=== PATIENT | female | born 1935 | race Caucasian/White ===

== ENCOUNTER 2023-06-11 21:17 | Inpatient (IN) | payer MEDICARE, OTHER ==
[2023-06-11 21:54] LABS: BASOPHILS ABSOLUTE AUTO 0.01 10^3/uL (0.00-0.50); BASOPHILS PERCENT AUTO 0.1 % (0-1); HEMATOCRIT 36.9 % (37.0-47.0); IMMATURE GRAN ABSOLUTE AUTO 0.02 10^3/uL (0.00-0.49); IMMATURE GRAN PERCENT AUTO 0.2 % (0.0-4.9); LYMPHOCYTES ABSOLUTE AUTO 1.62 10^3/uL (0.60-5.00); LYMPHOCYTES PERCENT AUTO 16.2 % (24-44); MEAN CORPUSCULAR HEMOGLOBIN 35.1 pg (27.0-32.0); MEAN CORPUSCULAR HGB CONC 35.2 g/dL (32.0-36.0); MEAN CORPUSCULAR VOLUME 99.7 fL (83.0-97.0); MONOCYTES ABSOLUTE AUTO 1.09 10^3/uL (0.00-1.50); MONOCYTES PERCENT AUTO 10.9 % (0-10); NEUTROPHILS ABSOLUTE AUTO 7.15 x10^3/uL (1.80-8.00); NEUTROPHILS PERCENT AUTO 71.6 % (41-71); PLATELET COUNT,PLT 254 10^3/uL (150-400)
[2023-06-11] MEDS ORDERED: Sodium Chloride 0.9% 10 ML Syringe FLUSH PRN (22:04)
[2023-06-11] MEDS ORDERED: Morphine 2 MG/ML SYRINGE IVPUSH ONE (22:04)
[2023-06-11 22:10] LABS: ALBUMIN 3.9 g/dL (3.4-5.0); BILIRUBIN TOTAL 0.7 mg/dL (0.0-1.0); CALCIUM 10.2 mg/dL (8.4-10.1); CREATININE 1.5 mg/dL (0.6-1.0); EST CRCL DRUG DOSING (CG) 24.27 mL/min; POTASSIUM,K 3.7 mEq/L (3.5-5.0); PROTEIN TOTAL,TP 8.1 g/dL (6.4-8.2)
[2023-06-11 22:14] LABS: C-REACTIVE PROTEIN 2.04 mg/dL (<=0.30)
[2023-06-11] MEDS ORDERED: Furosemide 40 MG/4 ML VIAL IVPUSH ONE (23:00)
[2023-06-11] MEDS ORDERED: Naloxone 2 MG/2 ML Syringe IVPUSH PRN (23:00)
[2023-06-11] MEDS ORDERED: Docusate Sodium 100 MG Cap PO PRN (23:00)
[2023-06-11] MEDS ORDERED: Polyethylene Glycol 3350 Powder 17 GM Packet PO PRN (23:00)
[2023-06-11] MEDS ORDERED: Acetaminophen 325 MG Tab PO PRN (23:00)
[2023-06-11] MEDS ORDERED: Ondansetron 4 MG/2 ML SDV IV PRN (23:00)
[2023-06-11] MEDS ORDERED: Ondansetron 4 MG Tab.DIS PO PRN (23:00)
[2023-06-11] MEDS: Acetaminophen/HYDROcodone 325-5 MG Tab PO PRN (23:11)
[2023-06-12] MEDS: Acetaminophen/HYDROcodone 325-5 MG Tab PO PRN ×4 (04:05→21:40)
[2023-06-12] MEDS: Morphine 2 MG/ML SYRINGE IVPUSH PRN ×4 (07:03→23:08)
[2023-06-12] MEDS: Spironolactone 25 MG Tab PO SCH ×2 (07:39→16:32)
[2023-06-12] MEDS: Doxycycline 100 MG Tab PO SCH ×2 (07:39→19:25)
[2023-06-12] MEDS: Diltiazem 120 MG Cap.CD PO SCH (07:40)
[2023-06-12] MEDS: Apixaban 5 MG Tab PO SCH ×2 (07:40→19:25)
[2023-06-12] MEDS: Metoprolol Succinate 100 MG Tab.ER PO SCH ×2 (07:41→19:26)
[2023-06-12] MEDS ORDERED: Furosemide 40 MG/4 ML VIAL IVPUSH SCH (08:00)
[2023-06-12] MEDS ORDERED: Apixaban 5 MG Tab PO SCH (08:00)
[2023-06-12 08:16] LABS: BASOPHILS ABSOLUTE AUTO 0.02 10^3/uL (0.00-0.50); BASOPHILS PERCENT AUTO 0.2 % (0-1); EOSINOPHILS ABSOLUTE AUTO 0.09 10^3/uL (0.00-1.50); HEMATOCRIT 35.7 % (37.0-47.0); HEMOGLOBIN 12.4 g/dL (12.0-16.0); IMMATURE GRAN ABSOLUTE AUTO 0.02 10^3/uL (0.00-0.49); IMMATURE GRAN PERCENT AUTO 0.2 % (0.0-4.9); LYMPHOCYTES ABSOLUTE AUTO 1.63 10^3/uL (0.60-5.00); LYMPHOCYTES PERCENT AUTO 17.6 % (24-44); MEAN CORPUSCULAR HEMOGLOBIN 34.5 pg (27.0-32.0); MEAN CORPUSCULAR HGB CONC 34.7 g/dL (32.0-36.0); MEAN CORPUSCULAR VOLUME 99.4 fL (83.0-97.0); MONOCYTES ABSOLUTE AUTO 1.15 10^3/uL (0.00-1.50); MONOCYTES PERCENT AUTO 12.4 % (0-10); NEUTROPHILS ABSOLUTE AUTO 6.33 x10^3/uL (1.80-8.00); NEUTROPHILS PERCENT AUTO 68.6 % (41-71); PLATELET COUNT,PLT 248 10^3/uL (150-400); RED BLOOD CELL COUNT 3.59 x10^6/uL (4.00-5.50); WHITE BLOOD CELL COUNT,WBC 9.2 10^3/uL (4.0-11.0)
[2023-06-12 08:28] LABS: CALCIUM 9.9 mg/dL (8.4-10.1); CREATININE 1.4 mg/dL (0.6-1.0); POTASSIUM,K 3.5 mEq/L (3.5-5.0)
[2023-06-12] MEDS: traZODone 50 MG Tab PO SCH (19:26)
[2023-06-12] MEDS: Mirtazapine 15 MG Tab PO SCH (19:26)
[2023-06-13] MEDS: Acetaminophen/HYDROcodone 325-5 MG Tab PO PRN ×2 (01:22→09:15)
[2023-06-13 07:30] LABS: BASOPHILS ABSOLUTE AUTO 0.02 10^3/uL (0.00-0.50); BASOPHILS PERCENT AUTO 0.2 % (0-1); EOSINOPHILS ABSOLUTE AUTO 0.18 10^3/uL (0.00-1.50); EOSINOPHILS PERCENT AUTO 2.1 % (0-6); HEMATOCRIT 37.7 % (37.0-47.0); HEMOGLOBIN 13.3 g/dL (12.0-16.0); IMMATURE GRAN ABSOLUTE AUTO 0.02 10^3/uL (0.00-0.49); IMMATURE GRAN PERCENT AUTO 0.2 % (0.0-4.9); LYMPHOCYTES ABSOLUTE AUTO 2.68 10^3/uL (0.60-5.00); LYMPHOCYTES PERCENT AUTO 30.7 % (24-44); MEAN CORPUSCULAR HEMOGLOBIN 35.1 pg (27.0-32.0); MEAN CORPUSCULAR HGB CONC 35.3 g/dL (32.0-36.0); MEAN CORPUSCULAR VOLUME 99.5 fL (83.0-97.0); MONOCYTES ABSOLUTE AUTO 1.13 10^3/uL (0.00-1.50); NEUTROPHILS ABSOLUTE AUTO 4.69 x10^3/uL (1.80-8.00); NEUTROPHILS PERCENT AUTO 53.8 % (41-71); PLATELET COUNT,PLT 262 10^3/uL (150-400); RED BLOOD CELL COUNT 3.79 x10^6/uL (4.00-5.50); WHITE BLOOD CELL COUNT,WBC 8.7 10^3/uL (4.0-11.0)
[2023-06-13] MEDS: Cyclobenzaprine 10 MG Tab PO SCH ×3 (07:33→20:19)
[2023-06-13] MEDS: Metoprolol Succinate 100 MG Tab.ER PO SCH ×2 (07:33→20:18)
[2023-06-13] MEDS: Doxycycline 100 MG Tab PO SCH ×2 (07:33→20:18)
[2023-06-13] MEDS: Spironolactone 25 MG Tab PO SCH ×2 (07:34→17:01)
[2023-06-13 07:43] LABS: CALCIUM 9.7 mg/dL (8.4-10.1); CREATININE 1.4 mg/dL (0.6-1.0); POTASSIUM,K 3.2 mEq/L (3.5-5.0)
[2023-06-13] MEDS: Apixaban 5 MG Tab PO SCH ×2 (07:59→20:18)
[2023-06-13] MEDS: Diltiazem 120 MG Cap.CD PO SCH (07:59)
[2023-06-13] MEDS ORDERED: Furosemide 40 MG/4 ML VIAL IVPUSH SCH (08:00)
[2023-06-13] MEDS ORDERED: Potassium Chloride 10 MEQ Tab.ER PO STA (12:05)
[2023-06-13] MEDS: Potassium Chloride 10 MEQ Tab.ER PO SCH (12:52)
[2023-06-13] MEDS: Acetaminophen/HYDROcodone 325-5 MG Tab PO SCH ×4 (13:09→20:19)
[2023-06-13] MEDS: Morphine 2 MG/ML SYRINGE IVPUSH PRN (15:06)
[2023-06-13] MEDS: Docusate Sodium 100 MG Cap PO SCH (20:18)
[2023-06-13] MEDS: Mirtazapine 15 MG Tab PO SCH (20:19)
[2023-06-13] MEDS: traZODone 50 MG Tab PO SCH (20:19)
[2023-06-14] MEDS: Acetaminophen/HYDROcodone 325-5 MG Tab PO SCH ×4 (00:13→12:24)
[2023-06-14] MEDS: Doxycycline 100 MG Tab PO SCH (07:33)
[2023-06-14] MEDS: Docusate Sodium 100 MG Cap PO SCH (07:34)
[2023-06-14] MEDS: Metoprolol Succinate 100 MG Tab.ER PO SCH (07:34)
[2023-06-14] MEDS: Cyclobenzaprine 10 MG Tab PO SCH (07:34)
[2023-06-14] MEDS: Potassium Chloride 10 MEQ Tab.ER PO SCH (07:34)
[2023-06-14 07:35] LABS: BASOPHILS ABSOLUTE AUTO 0.02 10^3/uL (0.00-0.50); BASOPHILS PERCENT AUTO 0.3 % (0-1); EOSINOPHILS ABSOLUTE AUTO 0.19 10^3/uL (0.00-1.50); EOSINOPHILS PERCENT AUTO 2.5 % (0-6); HEMATOCRIT 36.6 % (37.0-47.0); HEMOGLOBIN 12.6 g/dL (12.0-16.0); IMMATURE GRAN ABSOLUTE AUTO 0.01 10^3/uL (0.00-0.49); IMMATURE GRAN PERCENT AUTO 0.1 % (0.0-4.9); LYMPHOCYTES ABSOLUTE AUTO 1.99 10^3/uL (0.60-5.00); LYMPHOCYTES PERCENT AUTO 26.5 % (24-44); MEAN CORPUSCULAR HGB CONC 34.4 g/dL (32.0-36.0); MEAN CORPUSCULAR VOLUME 101.7 fL (83.0-97.0); MONOCYTES ABSOLUTE AUTO 0.97 10^3/uL (0.00-1.50); MONOCYTES PERCENT AUTO 12.9 % (0-10); NEUTROPHILS ABSOLUTE AUTO 4.32 x10^3/uL (1.80-8.00); NEUTROPHILS PERCENT AUTO 57.7 % (41-71); PLATELET COUNT,PLT 273 10^3/uL (150-400); WHITE BLOOD CELL COUNT,WBC 7.5 10^3/uL (4.0-11.0)
[2023-06-14] MEDS: Spironolactone 25 MG Tab PO SCH (07:35)
[2023-06-14] MEDS: Apixaban 5 MG Tab PO SCH ×2 (07:36→07:57)
[2023-06-14] MEDS: Diltiazem 120 MG Cap.CD PO SCH (07:36)
[2023-06-14 07:42] LABS: CALCIUM 9.9 mg/dL (8.4-10.1); CREATININE 1.4 mg/dL (0.6-1.0); POTASSIUM,K 4.2 mEq/L (3.5-5.0)
[2023-06-14] MEDS ORDERED: Furosemide 40 MG Tab PO SCH (08:00)
[2023-06-14 11:53] VITALS: BP 107/90; PULSE 81
== END 2023-06-14 12:28 | disposition home or self-care (01) | DRG 551 ==
LOC: CC.ED 21:17 → UNDOADMIN 22:36 → CC.MS 22:36
PROVIDERS: ADMIT Nurse Practitioner Family; ATTEND Nurse Practitioner Family
DX: S22.060A Wedge compression fracture of T7-T8 vertebra, initial encounter for closed fracture (principal); I50.33 Acute on chronic diastolic (congestive) heart failure; G89.11 Acute pain due to trauma; J18.9 Pneumonia, unspecified organism; I13.0 Hypertensive heart and chronic kidney disease with heart failure and stage 1 through stage 4 chronic kidney disease, or unspecified chronic kidney disease; R62.7 Adult failure to thrive; Z66 Do not resuscitate; R91.1 Solitary pulmonary nodule; N18.32 Chronic kidney disease, stage 3b; Z91.048 Other nonmedicinal substance allergy status; Z91.041 Radiographic dye allergy status; E78.00 Pure hypercholesterolemia, unspecified; Z79.01 Long term (current) use of anticoagulants; Z98.49 Cataract extraction status, unspecified eye; Z68.21 Body mass index [BMI] 21.0-21.9, adult; Z79.899 Other long term (current) drug therapy; X58.XXXA Exposure to other specified factors, initial encounter
CPT/HCPCS: 36415; 80048; 80053; 83880; 85025; 86140; 96374; 97116-GP; 97161-GP; 97530-GP; 99284-25; A9270-GY; J1940; J2270

== ENCOUNTER 2023-06-20 14:05 | Inpatient (IN) | payer MEDICARE, OTHER ==
[2023-06-20] MEDS ORDERED: Ondansetron 4 MG Tab.DIS PO PRN (16:31)
[2023-06-20] MEDS ORDERED: Docusate Sodium 100 MG Cap PO PRN (16:31)
[2023-06-20] MEDS ORDERED: Temazepam 15 MG Cap PO PRN (16:31)
[2023-06-20] MEDS ORDERED: Bisacodyl 5 MG Tab PO PRN (16:31)
[2023-06-20] MEDS ORDERED: Polyethylene Glycol 3350 Powder 17 GM Packet PO PRN (16:31)
[2023-06-20] MEDS ORDERED: FLU (Fluad Quad) 2023-24(65UP)/MF59C/PF 60 MCG/0.5 ML Syringe IM ONE (17:00)
[2023-06-20] MEDS: Mirtazapine 15 MG Tab PO SCH (19:20)
[2023-06-20] MEDS: Furosemide 40 MG Tab PO SCH (19:21)
[2023-06-20] MEDS: Spironolactone 25 MG Tab PO SCH (19:21)
[2023-06-20] MEDS: traZODone 50 MG Tab PO SCH (19:22)
[2023-06-20] MEDS: oxyCODONE 5 MG Tab PO PRN (20:45)
[2023-06-20] MEDS: Metoprolol Succinate 100 MG Tab.ER PO SCH (23:00)
[2023-06-21] MEDS: Spironolactone 25 MG Tab PO SCH ×2 (07:52→20:57)
[2023-06-21] MEDS: Beta-Carotene (Vitamin A) w/Vitamin C & E plus Minerals Tab PO SCH (07:52)
[2023-06-21] MEDS: Diltiazem 120 MG Cap.CD PO SCH (07:53)
[2023-06-21] MEDS: Ascorbic Acid 500 MG Tab PO SCH (07:53)
[2023-06-21] MEDS: Furosemide 40 MG Tab PO SCH ×2 (07:53→15:59)
[2023-06-21] MEDS: Metoprolol Succinate 100 MG Tab.ER PO SCH ×2 (07:53→20:58)
[2023-06-21] MEDS ORDERED: Apixaban 5 MG Tab PO SCH (08:00)
[2023-06-21] MEDS: Apixaban 5 MG Tab PO SCH ×2 (09:31→20:56)
[2023-06-21] MEDS: oxyCODONE 5 MG Tab PO PRN (10:34)
[2023-06-21] MEDS: Acetaminophen 325 MG Tab PO PRN ×2 (10:38→21:24)
[2023-06-21] MEDS: Mirtazapine 15 MG Tab PO SCH (20:57)
[2023-06-21] MEDS: traZODone 50 MG Tab PO SCH (20:57)
[2023-06-22] MEDS: Acetaminophen 325 MG Tab PO PRN ×2 (04:00→20:40)
[2023-06-22] MEDS: Apixaban 5 MG Tab PO SCH ×2 (07:37→20:39)
[2023-06-22] MEDS: Beta-Carotene (Vitamin A) w/Vitamin C & E plus Minerals Tab PO SCH (07:39)
[2023-06-22] MEDS: Ascorbic Acid 500 MG Tab PO SCH (07:39)
[2023-06-22] MEDS: Furosemide 40 MG Tab PO SCH ×2 (07:39→16:34)
[2023-06-22] MEDS: Metoprolol Succinate 100 MG Tab.ER PO SCH ×2 (07:40→20:39)
[2023-06-22] MEDS: Diltiazem 120 MG Cap.CD PO SCH (07:40)
[2023-06-22] MEDS: Spironolactone 25 MG Tab PO SCH ×2 (07:41→20:39)
[2023-06-22] MEDS: traZODone 50 MG Tab PO SCH (20:40)
[2023-06-22] MEDS: Mirtazapine 15 MG Tab PO SCH (20:40)
[2023-06-23] MEDS: Acetaminophen 325 MG Tab PO PRN (07:47)
[2023-06-23] MEDS: Metoprolol Succinate 100 MG Tab.ER PO SCH (07:49)
[2023-06-23] MEDS: Apixaban 5 MG Tab PO SCH (07:49)
[2023-06-23] MEDS: Ascorbic Acid 500 MG Tab PO SCH (07:50)
[2023-06-23] MEDS: Beta-Carotene (Vitamin A) w/Vitamin C & E plus Minerals Tab PO SCH (07:50)
[2023-06-23] MEDS: Spironolactone 25 MG Tab PO SCH (07:51)
[2023-06-23] MEDS: Furosemide 40 MG Tab PO SCH ×2 (07:51→15:37)
[2023-06-23] MEDS: Diltiazem 120 MG Cap.CD PO SCH (07:51)
[2023-06-23 07:52] VITALS: BP 112/61; PULSE 93
[2023-06-23] MEDS ORDERED: FLU (Fluad Quad) 2023-24(65UP)/MF59C/PF 60 MCG/0.5 ML Syringe IM ONE (14:30)
== END 2023-06-23 16:00 | disposition home or self-care (01) | DRG 948 ==
LOC: UNDOADMIN 14:05 → CC.MS 14:05
PROVIDERS: ADMIT Physician Assistant Medical; ATTEND Physician Assistant Medical
DX: R53.81 Other malaise (principal); I50.32 Chronic diastolic (congestive) heart failure; I48.91 Unspecified atrial fibrillation; N18.32 Chronic kidney disease, stage 3b; I11.0 Hypertensive heart disease with heart failure; E78.00 Pure hypercholesterolemia, unspecified; G89.29 Other chronic pain; M54.9 Dorsalgia, unspecified; S22.060S Wedge compression fracture of T7-T8 vertebra, sequela; Z79.899 Other long term (current) drug therapy; Z79.01 Long term (current) use of anticoagulants; Z98.890 Other specified postprocedural states; Z91.041 Radiographic dye allergy status; Z98.49 Cataract extraction status, unspecified eye
CPT/HCPCS: 82947; 90694; 97110-GP; 97161-GP; 97530-GP; A9270-GY

== ENCOUNTER 2023-06-27 15:43 | Inpatient (IN) | payer MEDICARE, OTHER ==
[2023-06-27 15:56] LABS: BASOPHILS ABSOLUTE AUTO 0.02 10^3/uL (0.00-0.50); BASOPHILS PERCENT AUTO 0.2 % (0-1); EOSINOPHILS ABSOLUTE AUTO 0.14 10^3/uL (0.00-1.50); EOSINOPHILS PERCENT AUTO 1.6 % (0-6); HEMATOCRIT 40.5 % (37.0-47.0); IMMATURE GRAN ABSOLUTE AUTO 0.03 10^3/uL (0.00-0.49); IMMATURE GRAN PERCENT AUTO 0.3 % (0.0-4.9); LYMPHOCYTES ABSOLUTE AUTO 2.08 10^3/uL (0.60-5.00); LYMPHOCYTES PERCENT AUTO 23.5 % (24-44); MEAN CORPUSCULAR HGB CONC 34.6 g/dL (32.0-36.0); MEAN CORPUSCULAR VOLUME 101.3 fL (83.0-97.0); MONOCYTES ABSOLUTE AUTO 1.15 10^3/uL (0.00-1.50); NEUTROPHILS ABSOLUTE AUTO 5.43 x10^3/uL (1.80-8.00); NEUTROPHILS PERCENT AUTO 61.4 % (41-71); PLATELET COUNT,PLT 277 10^3/uL (150-400); WHITE BLOOD CELL COUNT,WBC 8.9 10^3/uL (4.0-11.0)
[2023-06-27 16:13] LABS: APPEARANCE,URINE CLEAR (CLEAR); BILIRUBIN,URINE NEGATIVE (NEGATIVE); COLOR,URINE YELLOW (YELLOW); GLUCOSE,URINE NEGATIVE (NEGATIVE); KETONES,URINE NEGATIVE (NEGATIVE); LEUKOCYTE ESTERASE,URINE TRACE (NEGATIVE); NITRITE,URINE NEGATIVE (NEGATIVE); OCCULT BLOOD,URINE NEGATIVE (NEGATIVE); PROTEIN,URINE NEGATIVE (NEGATIVE); UROBILINOGEN,URINE 0.2 EU/dL (0.2-1.0)
[2023-06-27 16:21] LABS: BACTERIA,URINE NOT SEEN /HPF (NOT SEEN); EPITHELIAL CELLS,URINE NOT SEEN /HPF (NOT SEEN); MUCUS,URINE NOT SEEN /HPF (NOT SEEN); RBC,URINE NOT SEEN /HPF (0-5); WBC,URINE 0-5 /HPF (0-5)
[2023-06-27 16:25] LABS: ALANINE AMINOTRANSFERASE,ALT 18 U/L (12-78); ALKALINE PHOSPHATASE 127 U/L (46-116); ASPARTATE AMNIOTRANSFERASE,AST 22 U/L (15-37); BILIRUBIN TOTAL 0.8 mg/dL (0.0-1.0); BLOOD UREA NITROGEN,BUN 23 mg/dL (7-18); C-REACTIVE PROTEIN 0.97 mg/dL (<=0.30); CALCIUM 9.9 mg/dL (8.4-10.1); CARBON DIOXIDE,CO2 29 mmol/L (21-32); CHLORIDE,CL 94 mEq/L (98-106); CREATININE 1.6 mg/dL (0.6-1.0); GLUCOSE RANDOM 119 mg/dL (75-99); POTASSIUM,K 4.1 mEq/L (3.5-5.0); PROTEIN TOTAL,TP 8.2 g/dL (6.4-8.2); SODIUM,NA 133 mEq/L (136-145)
[2023-06-27 16:27] LABS: ESTIMATED GFR 31 mL/min (>=60)
[2023-06-27] MEDS ORDERED: Polyethylene Glycol 3350 Powder 17 GM Packet PO PRN (18:27)
[2023-06-27] MEDS ORDERED: Docusate Sodium 100 MG Cap PO PRN (18:27)
[2023-06-27] MEDS ORDERED: Ondansetron 4 MG Tab.DIS PO PRN (18:27)
[2023-06-27] MEDS: Furosemide 20 MG Tab PO SCH (19:37)
[2023-06-27] MEDS: Mirtazapine 15 MG Tab PO SCH (19:37)
[2023-06-27] MEDS: Spironolactone 25 MG Tab PO SCH (19:38)
[2023-06-27] MEDS: Metoprolol Succinate 100 MG Tab.ER PO SCH (19:38)
[2023-06-27] MEDS: traZODone 50 MG Tab PO SCH (19:38)
[2023-06-27] MEDS: Apixaban 5 MG Tab PO SCH (19:39)
[2023-06-27] MEDS ORDERED: DOXYCYCLINE 100 MG PO SCH (20:00)
[2023-06-28] MEDS: oxyCODONE 5 MG Tab PO PRN ×2 (02:58→08:49)
[2023-06-28] MEDS: Apixaban 5 MG Tab PO SCH ×2 (08:46→19:21)
[2023-06-28] MEDS: Beta-Carotene (Vitamin A) w/Vitamin C & E plus Minerals Tab PO SCH (08:46)
[2023-06-28] MEDS: Ascorbic Acid 500 MG Tab PO SCH (08:46)
[2023-06-28] MEDS: Furosemide 20 MG Tab PO SCH ×2 (08:46→19:21)
[2023-06-28] MEDS: Diltiazem 120 MG Cap.CD PO SCH (08:47)
[2023-06-28] MEDS: Metoprolol Succinate 100 MG Tab.ER PO SCH ×2 (08:47→19:21)
[2023-06-28] MEDS: Spironolactone 25 MG Tab PO SCH ×2 (08:48→19:19)
[2023-06-28] MEDS: traZODone 50 MG Tab PO SCH (19:20)
[2023-06-28] MEDS: Mirtazapine 15 MG Tab PO SCH (19:20)
[2023-06-28] MEDS: Acetaminophen 325 MG Tab PO PRN (21:49)
[2023-06-29] MEDS: oxyCODONE 5 MG Tab PO PRN (01:42)
[2023-06-29] MEDS: Spironolactone 25 MG Tab PO SCH ×2 (08:03→19:29)
[2023-06-29] MEDS: Diltiazem 120 MG Cap.CD PO SCH (08:04)
[2023-06-29] MEDS: Apixaban 5 MG Tab PO SCH ×2 (08:04→19:31)
[2023-06-29] MEDS: Furosemide 20 MG Tab PO SCH ×2 (08:04→19:30)
[2023-06-29] MEDS: Metoprolol Succinate 100 MG Tab.ER PO SCH ×2 (08:05→19:30)
[2023-06-29] MEDS: Beta-Carotene (Vitamin A) w/Vitamin C & E plus Minerals Tab PO SCH (08:05)
[2023-06-29] MEDS: Ascorbic Acid 500 MG Tab PO SCH (08:06)
[2023-06-29] MEDS: traZODone 50 MG Tab PO SCH (19:31)
[2023-06-29] MEDS: Mirtazapine 15 MG Tab PO SCH (19:31)
[2023-06-29] MEDS: Acetaminophen 325 MG Tab PO PRN (21:01)
[2023-06-30] MEDS: Spironolactone 25 MG Tab PO SCH ×2 (07:43→19:39)
[2023-06-30] MEDS: Ascorbic Acid 500 MG Tab PO SCH (07:43)
[2023-06-30] MEDS: Beta-Carotene (Vitamin A) w/Vitamin C & E plus Minerals Tab PO SCH (07:43)
[2023-06-30] MEDS: Furosemide 20 MG Tab PO SCH (07:44)
[2023-06-30] MEDS: Apixaban 5 MG Tab PO SCH ×2 (07:45→19:40)
[2023-06-30] MEDS: Metoprolol Succinate 100 MG Tab.ER PO SCH ×2 (07:45→19:38)
[2023-06-30] MEDS: Diltiazem 120 MG Cap.CD PO SCH (07:45)
[2023-06-30] MEDS: oxyCODONE 5 MG Tab PO PRN (11:21)
[2023-06-30] MEDS: Furosemide 40 MG Tab PO SCH (16:30)
[2023-06-30] MEDS: traZODone 50 MG Tab PO SCH (19:37)
[2023-06-30] MEDS: Mirtazapine 15 MG Tab PO SCH (19:39)
[2023-06-30] MEDS: Acetaminophen 325 MG Tab PO PRN (20:55)
[2023-07-01] MEDS: Acetaminophen 325 MG Tab PO PRN ×3 (08:38→21:26)
[2023-07-01] MEDS: Ascorbic Acid 500 MG Tab PO SCH (08:38)
[2023-07-01] MEDS: Beta-Carotene (Vitamin A) w/Vitamin C & E plus Minerals Tab PO SCH (08:38)
[2023-07-01] MEDS: Furosemide 40 MG Tab PO SCH ×2 (08:39→16:06)
[2023-07-01] MEDS: Diltiazem 120 MG Cap.CD PO SCH (08:39)
[2023-07-01] MEDS: Metoprolol Succinate 100 MG Tab.ER PO SCH ×2 (08:39→19:17)
[2023-07-01] MEDS: Spironolactone 25 MG Tab PO SCH ×2 (08:40→19:17)
[2023-07-01] MEDS: Apixaban 5 MG Tab PO SCH ×2 (08:40→19:16)
[2023-07-01] MEDS: Mirtazapine 15 MG Tab PO SCH (19:16)
[2023-07-01] MEDS: traZODone 50 MG Tab PO SCH (19:18)
[2023-07-02] MEDS: Ascorbic Acid 500 MG Tab PO SCH (07:34)
[2023-07-02] MEDS: Apixaban 5 MG Tab PO SCH ×2 (07:34→19:36)
[2023-07-02] MEDS: Spironolactone 25 MG Tab PO SCH ×2 (07:34→19:35)
[2023-07-02] MEDS: Metoprolol Succinate 100 MG Tab.ER PO SCH ×2 (07:35→19:37)
[2023-07-02] MEDS: Beta-Carotene (Vitamin A) w/Vitamin C & E plus Minerals Tab PO SCH (07:35)
[2023-07-02] MEDS: Diltiazem 120 MG Cap.CD PO SCH (07:35)
[2023-07-02] MEDS: Furosemide 40 MG Tab PO SCH ×2 (07:36→15:12)
[2023-07-02] MEDS: Acetaminophen 325 MG Tab PO PRN ×2 (13:34→20:52)
[2023-07-02] MEDS: Mirtazapine 15 MG Tab PO SCH (19:36)
[2023-07-02] MEDS: traZODone 50 MG Tab PO SCH (19:37)
[2023-07-03] MEDS: Acetaminophen 325 MG Tab PO PRN ×3 (05:36→20:49)
[2023-07-03] MEDS: Metoprolol Succinate 100 MG Tab.ER PO SCH ×2 (07:18→19:41)
[2023-07-03] MEDS: Diltiazem 120 MG Cap.CD PO SCH (07:19)
[2023-07-03] MEDS: Apixaban 5 MG Tab PO SCH ×2 (07:19→19:40)
[2023-07-03] MEDS: Ascorbic Acid 500 MG Tab PO SCH (07:19)
[2023-07-03] MEDS: Beta-Carotene (Vitamin A) w/Vitamin C & E plus Minerals Tab PO SCH (07:19)
[2023-07-03] MEDS: Furosemide 40 MG Tab PO SCH ×2 (07:19→15:45)
[2023-07-03] MEDS: Spironolactone 25 MG Tab PO SCH ×2 (07:20→19:38)
[2023-07-03] MEDS: oxyCODONE 5 MG Tab PO PRN (08:50)
[2023-07-03] MEDS: Mirtazapine 15 MG Tab PO SCH (19:40)
[2023-07-03] MEDS: traZODone 50 MG Tab PO SCH (19:40)
[2023-07-04] MEDS: Acetaminophen 325 MG Tab PO PRN ×2 (06:05→19:35)
[2023-07-04] MEDS: Apixaban 5 MG Tab PO SCH ×2 (08:51→19:29)
[2023-07-04] MEDS: Metoprolol Succinate 100 MG Tab.ER PO SCH ×2 (08:51→19:31)
[2023-07-04] MEDS: Furosemide 40 MG Tab PO SCH ×2 (08:52→15:56)
[2023-07-04] MEDS: Spironolactone 25 MG Tab PO SCH ×2 (08:52→19:29)
[2023-07-04] MEDS: Diltiazem 120 MG Cap.CD PO SCH (08:52)
[2023-07-04] MEDS: Beta-Carotene (Vitamin A) w/Vitamin C & E plus Minerals Tab PO SCH (08:53)
[2023-07-04] MEDS: Ascorbic Acid 500 MG Tab PO SCH (08:53)
[2023-07-04] MEDS: Mirtazapine 15 MG Tab PO SCH (19:30)
[2023-07-04] MEDS: traZODone 50 MG Tab PO SCH (19:31)
[2023-07-05] MEDS: Apixaban 5 MG Tab PO SCH ×2 (07:45→20:34)
[2023-07-05] MEDS: Furosemide 40 MG Tab PO SCH ×2 (07:46→17:12)
[2023-07-05] MEDS: Beta-Carotene (Vitamin A) w/Vitamin C & E plus Minerals Tab PO SCH (07:46)
[2023-07-05] MEDS: Ascorbic Acid 500 MG Tab PO SCH (07:46)
[2023-07-05] MEDS: Metoprolol Succinate 100 MG Tab.ER PO SCH ×2 (07:46→20:34)
[2023-07-05] MEDS: Acetaminophen 325 MG Tab PO PRN ×2 (07:47→21:03)
[2023-07-05] MEDS: Diltiazem 120 MG Cap.CD PO SCH (07:48)
[2023-07-05] MEDS: Spironolactone 25 MG Tab PO SCH ×2 (07:49→20:34)
[2023-07-05] MEDS: Mirtazapine 15 MG Tab PO SCH (20:33)
[2023-07-05] MEDS: traZODone 50 MG Tab PO SCH (20:34)
[2023-07-06] MEDS: Acetaminophen 325 MG Tab PO PRN (05:06)
[2023-07-06] MEDS: oxyCODONE 5 MG Tab PO PRN (07:32)
[2023-07-06] MEDS: Beta-Carotene (Vitamin A) w/Vitamin C & E plus Minerals Tab PO SCH (07:46)
[2023-07-06] MEDS: Ascorbic Acid 500 MG Tab PO SCH (07:46)
[2023-07-06] MEDS: Diltiazem 120 MG Cap.CD PO SCH (07:47)
[2023-07-06] MEDS: Apixaban 5 MG Tab PO SCH (07:47)
[2023-07-06] MEDS: Furosemide 40 MG Tab PO SCH (07:47)
[2023-07-06] MEDS: Spironolactone 25 MG Tab PO SCH (07:47)
[2023-07-06 07:48] VITALS: BP 122/63; PULSE 74
[2023-07-06] MEDS: Metoprolol Succinate 100 MG Tab.ER PO SCH (07:48)
== END 2023-07-06 09:49 | disposition other institution (70) | DRG 948 ==
LOC: CC.FCMC 15:43 → CC.MS 15:43
PROVIDERS: ADMIT Nurse Practitioner Family; ATTEND Nurse Practitioner Family
DX: R53.81 Other malaise (principal); I50.32 Chronic diastolic (congestive) heart failure; I13.0 Hypertensive heart and chronic kidney disease with heart failure and stage 1 through stage 4 chronic kidney disease, or unspecified chronic kidney disease; N18.32 Chronic kidney disease, stage 3b; E78.00 Pure hypercholesterolemia, unspecified; G89.29 Other chronic pain; M54.9 Dorsalgia, unspecified; S22.060S Wedge compression fracture of T7-T8 vertebra, sequela; Z98.890 Other specified postprocedural states; Z79.899 Other long term (current) drug therapy; Z91.041 Radiographic dye allergy status; Z79.01 Long term (current) use of anticoagulants; Z98.49 Cataract extraction status, unspecified eye
CPT/HCPCS: 36415; 70450; 71046; 80053; 81001; 84484; 85025; 86140; 93005; 93010; 97110-GP; 97161-GP; A9270-GY

== ENCOUNTER 2024-01-09 09:23 | Inpatient (IN) | payer MEDICARE, OTHER ==
[2024-01-09 10:11] LABS: BASOPHILS ABSOLUTE AUTO 0.01 10^3/uL (0.00-0.50); HEMATOCRIT 36.6 % (37.0-47.0); HEMOGLOBIN 12.2 g/dL (12.0-16.0); IMMATURE GRAN ABSOLUTE AUTO 0.18 10^3/uL (0.00-0.49); IMMATURE GRAN PERCENT AUTO 0.7 % (0.0-4.9); LYMPHOCYTES ABSOLUTE AUTO 1.43 10^3/uL (0.60-5.00); LYMPHOCYTES PERCENT AUTO 5.9 % (24-44); MEAN CORPUSCULAR HEMOGLOBIN 34.4 pg (27.0-32.0); MEAN CORPUSCULAR HGB CONC 33.3 g/dL (32.0-36.0); MEAN CORPUSCULAR VOLUME 103.1 fL (83.0-97.0); MONOCYTES ABSOLUTE AUTO 2.31 10^3/uL (0.00-1.50); MONOCYTES PERCENT AUTO 9.6 % (0-10); NEUTROPHILS PERCENT AUTO 83.8 % (41-71); PLATELET COUNT,PLT 235 10^3/uL (150-400); RED BLOOD CELL COUNT 3.55 x10^6/uL (4.00-5.50)
[2024-01-09 10:17] LABS: WHITE BLOOD CELL COUNT,WBC 24.1 10^3/uL (4.0-11.0)
[2024-01-09 10:38] LABS: POTASSIUM,K 3.6 mEq/L (3.5-5.0)
[2024-01-09 10:39] LABS: ALBUMIN 3.2 g/dL (3.4-5.0); CALCIUM 8.7 mg/dL (8.4-10.1); CREATININE 1.9 mg/dL (0.6-1.0); EST CRCL DRUG DOSING (CG) 19.16 mL/min; PROTEIN TOTAL,TP 7.7 g/dL (6.4-8.2)
[2024-01-09 10:40] LABS: BILIRUBIN TOTAL 1.2 mg/dL (0.0-1.0)
[2024-01-09] MEDS: Sodium Chloride 0.9% 1,000 ML IV ONE (10:42)
[2024-01-09 10:46] LABS: C-REACTIVE PROTEIN 33.61 mg/dL (<=0.50)
[2024-01-09] MEDS: cefTRIAXone 1 GM Vial IVPUSH ONE (10:46)
[2024-01-09 11:09] LABS: CORONAVIRUS COVID-19 NAA NEGATIVE (NEGATIVE); INFLUENZA A NAA NEGATIVE (NEGATIVE); INFLUENZA B NAA NEGATIVE (NEGATIVE); RESPIRATORY SYNCYTIAL VIR NAA NEGATIVE (NEGATIVE)
[2024-01-09] MEDS ORDERED: Sodium Chloride 0.9% 10 ML Syringe FLUSH PRN (11:20)
[2024-01-09] MEDS ORDERED: oxyCODONE 5 MG Tab PO PRN (11:20)
[2024-01-09] MEDS ORDERED: Ondansetron 4 MG Tab.DIS PO PRN (11:20)
[2024-01-09] MEDS ORDERED: Acetaminophen 325 MG Tab PO PRN ×2 (11:20)
[2024-01-09] MEDS: Albuterol/Ipratropium 3.0-0.5 MG/3 ML Neb Soln NEB SCH (11:42)
[2024-01-09] MEDS: methylPREDNISolone Sodium Succinate 40 MG/1 ML SDV IVPUSH SCH (11:45)
[2024-01-09] MEDS: Azithromycin 500 MG in Sodium Chloride 0.9% 250 ML IV SCH (11:50)
[2024-01-09] MEDS: Furosemide 40 MG Tab PO SCH (15:35)
[2024-01-09] MEDS: Apixaban 5 MG Tab PO SCH (19:33)
[2024-01-09] MEDS: Metoprolol Succinate 100 MG Tab.ER PO SCH (19:33)
[2024-01-09] MEDS: Mirtazapine 15 MG Tab PO SCH (19:34)
[2024-01-09] MEDS: traZODone 50 MG Tab PO SCH (19:34)
[2024-01-09] MEDS: Spironolactone 25 MG Tab PO SCH (19:34)
[2024-01-10 07:29] LABS: HEMATOCRIT 32.9 % (37.0-47.0); HEMOGLOBIN 10.9 g/dL (12.0-16.0); IMMATURE GRAN ABSOLUTE AUTO 0.03 10^3/uL (0.00-0.49); IMMATURE GRAN PERCENT AUTO 0.2 % (0.0-4.9); LYMPHOCYTES ABSOLUTE AUTO 1.03 10^3/uL (0.60-5.00); LYMPHOCYTES PERCENT AUTO 8.1 % (24-44); MEAN CORPUSCULAR HEMOGLOBIN 33.6 pg (27.0-32.0); MEAN CORPUSCULAR HGB CONC 33.1 g/dL (32.0-36.0); MEAN CORPUSCULAR VOLUME 101.5 fL (83.0-97.0); MONOCYTES PERCENT AUTO 3.9 % (0-10); NEUTROPHILS ABSOLUTE AUTO 11.11 x10^3/uL (1.80-8.00); NEUTROPHILS PERCENT AUTO 87.8 % (41-71); PLATELET COUNT,PLT 216 10^3/uL (150-400); RED BLOOD CELL COUNT 3.24 x10^6/uL (4.00-5.50); WHITE BLOOD CELL COUNT,WBC 12.7 10^3/uL (4.0-11.0)
[2024-01-10] MEDS: Beta-Carotene (Vitamin A) w/Vitamin C & E plus Minerals Tab PO SCH (07:36)
[2024-01-10] MEDS: Ascorbic Acid 500 MG Tab PO SCH (07:36)
[2024-01-10] MEDS: Aspirin 81 MG Tab.Chew PO SCH (07:37)
[2024-01-10] MEDS: Diltiazem 120 MG Cap.CD PO SCH (07:49)
[2024-01-10] MEDS: cefTRIAXone 1 GM Vial IVPUSH SCH (07:59)
[2024-01-10] MEDS ORDERED: Non-Formulary Medication 1 Each (Zinc Gluconate [Zinc] 50 MG Tablet) PO SCH (08:00)
[2024-01-10 08:01] LABS: ALBUMIN 2.8 g/dL (3.4-5.0); BILIRUBIN TOTAL 0.5 mg/dL (0.0-1.0); CALCIUM 8.1 mg/dL (8.4-10.1); CREATININE 1.4 mg/dL (0.6-1.0); POTASSIUM,K 3.6 mEq/L (3.5-5.0); PROTEIN TOTAL,TP 7.2 g/dL (6.4-8.2)
[2024-01-10 08:03] LABS: C-REACTIVE PROTEIN 33.37 mg/dL (<=0.50)
[2024-01-10] MEDS ORDERED: cefTRIAXone 2 GM Vial IVPUSH SCH (10:30)
[2024-01-10] MEDS ORDERED: VANCOmycin 1 GM/200 ML 1 GM in Premix Bag 1 BAG IV ONE (10:30)
[2024-01-10] MEDS: VANCOmycin 1.25 GM/250 ML 1.25 GM in Premix Bag 1 BAG IV ONE (11:19)
[2024-01-10] MEDS: Lactobacillus Rhamnosus GG (Probiotic) Cap PO SCH (11:33)
[2024-01-11 07:50] LABS: HEMATOCRIT 32.7 % (37.0-47.0); HEMOGLOBIN 11.1 g/dL (12.0-16.0); IMMATURE GRAN ABSOLUTE AUTO 0.03 10^3/uL (0.00-0.49); IMMATURE GRAN PERCENT AUTO 0.3 % (0.0-4.9); LYMPHOCYTES ABSOLUTE AUTO 0.87 10^3/uL (0.60-5.00); LYMPHOCYTES PERCENT AUTO 8.6 % (24-44); MEAN CORPUSCULAR HEMOGLOBIN 34.6 pg (27.0-32.0); MEAN CORPUSCULAR HGB CONC 33.9 g/dL (32.0-36.0); MEAN CORPUSCULAR VOLUME 101.9 fL (83.0-97.0); MONOCYTES ABSOLUTE AUTO 0.48 10^3/uL (0.00-1.50); MONOCYTES PERCENT AUTO 4.7 % (0-10); NEUTROPHILS ABSOLUTE AUTO 8.73 x10^3/uL (1.80-8.00); NEUTROPHILS PERCENT AUTO 86.4 % (41-71); PLATELET COUNT,PLT 251 10^3/uL (150-400); RED BLOOD CELL COUNT 3.21 x10^6/uL (4.00-5.50); WHITE BLOOD CELL COUNT,WBC 10.1 10^3/uL (4.0-11.0)
[2024-01-11 07:58] LABS: ALBUMIN 2.7 g/dL (3.4-5.0); BILIRUBIN TOTAL 0.3 mg/dL (0.0-1.0); C-REACTIVE PROTEIN 16.38 mg/dL (<=0.50); CALCIUM 7.9 mg/dL (8.4-10.1); CREATININE 1.3 mg/dL (0.6-1.0); EST CRCL DRUG DOSING (CG) 27.46 mL/min; POTASSIUM,K 4.1 mEq/L (3.5-5.0); VANCOMYCIN RANDOM 12.3
[2024-01-11] MEDS: cefTRIAXone 2 GM Vial IVPUSH SCH (07:59)
[2024-01-11] MEDS ORDERED: Aspirin 81 MG Tab.EC PO ONE (09:56)
[2024-01-11] MEDS: Diltiazem IR 30 MG Tab PO STA (10:50)
[2024-01-11] MEDS: Diltiazem IR 30 MG Tab PO ONE (19:37)
[2024-01-12] MEDS: methylPREDNISolone Sodium Succinate 40 MG/1 ML SDV IVPUSH SCH (07:32)
[2024-01-12 07:49] LABS: HEMATOCRIT 31.8 % (37.0-47.0); HEMOGLOBIN 10.7 g/dL (12.0-16.0); IMMATURE GRAN ABSOLUTE AUTO 0.04 10^3/uL (0.00-0.49); IMMATURE GRAN PERCENT AUTO 0.6 % (0.0-4.9); LYMPHOCYTES ABSOLUTE AUTO 0.75 10^3/uL (0.60-5.00); LYMPHOCYTES PERCENT AUTO 11.3 % (24-44); MEAN CORPUSCULAR HEMOGLOBIN 34.1 pg (27.0-32.0); MEAN CORPUSCULAR HGB CONC 33.6 g/dL (32.0-36.0); MEAN CORPUSCULAR VOLUME 101.3 fL (83.0-97.0); MONOCYTES ABSOLUTE AUTO 0.41 10^3/uL (0.00-1.50); MONOCYTES PERCENT AUTO 6.2 % (0-10); NEUTROPHILS ABSOLUTE AUTO 5.43 x10^3/uL (1.80-8.00); NEUTROPHILS PERCENT AUTO 81.9 % (41-71); PLATELET COUNT,PLT 255 10^3/uL (150-400); RED BLOOD CELL COUNT 3.14 x10^6/uL (4.00-5.50); WHITE BLOOD CELL COUNT,WBC 6.6 10^3/uL (4.0-11.0)
[2024-01-12] MEDS: Diltiazem 180 MG Cap.CD PO SCH (07:54)
[2024-01-12 09:04] LABS: ALBUMIN 2.5 g/dL (3.4-5.0); BILIRUBIN TOTAL 0.2 mg/dL (0.0-1.0); C-REACTIVE PROTEIN 8.46 mg/dL (<=0.50); CREATININE 1.4 mg/dL (0.6-1.0); EST CRCL DRUG DOSING (CG) 25.5 mL/min; POTASSIUM,K 3.4 mEq/L (3.5-5.0); PROTEIN TOTAL,TP 6.7 g/dL (6.4-8.2)
[2024-01-12] MEDS: Temazepam 15 MG Cap PO PRN (21:38)
[2024-01-13 07:43] LABS: HEMATOCRIT 31.6 % (37.0-47.0); HEMOGLOBIN 10.6 g/dL (12.0-16.0); IMMATURE GRAN ABSOLUTE AUTO 0.17 10^3/uL (0.00-0.49); IMMATURE GRAN PERCENT AUTO 2.4 % (0.0-4.9); LYMPHOCYTES PERCENT AUTO 12.7 % (24-44); MEAN CORPUSCULAR HEMOGLOBIN 33.8 pg (27.0-32.0); MEAN CORPUSCULAR HGB CONC 33.5 g/dL (32.0-36.0); MEAN CORPUSCULAR VOLUME 100.6 fL (83.0-97.0); MONOCYTES ABSOLUTE AUTO 0.77 10^3/uL (0.00-1.50); MONOCYTES PERCENT AUTO 10.9 % (0-10); NEUTROPHILS ABSOLUTE AUTO 5.22 x10^3/uL (1.80-8.00); PLATELET COUNT,PLT 255 10^3/uL (150-400); RED BLOOD CELL COUNT 3.14 x10^6/uL (4.00-5.50); WHITE BLOOD CELL COUNT,WBC 7.1 10^3/uL (4.0-11.0)
[2024-01-13 07:49] LABS: CALCIUM 7.7 mg/dL (8.4-10.1); CREATININE 1.2 mg/dL (0.6-1.0); EST CRCL DRUG DOSING (CG) 29.75 mL/min; MAGNESIUM 2.4 mg/dL (1.8-2.4); POTASSIUM,K 3.7 mEq/L (3.5-5.0)
[2024-01-13 14:08] VITALS: BP 101/63; PULSE 95
== END 2024-01-13 14:10 | disposition home or self-care (01) | DRG 871 ==
LOC: CC.ED 09:23 → CC.MS 10:50 → UNDOADMIN 10:50 → CC.MS 10:59
PROVIDERS: ADMIT Physician Assistant Medical; ATTEND Physician Assistant Medical
DX: A40.3 Sepsis due to Streptococcus pneumoniae (principal); I50.33 Acute on chronic diastolic (congestive) heart failure; R65.20 Severe sepsis without septic shock; J13 Pneumonia due to Streptococcus pneumoniae; N17.9 Acute kidney failure, unspecified; I11.0 Hypertensive heart disease with heart failure; I48.91 Unspecified atrial fibrillation; Z88.8 Allergy status to other drugs, medicaments and biological substances; Z91.041 Radiographic dye allergy status; Z79.01 Long term (current) use of anticoagulants; Z79.82 Long term (current) use of aspirin; Z98.49 Cataract extraction status, unspecified eye; Z98.890 Other specified postprocedural states; Z79.899 Other long term (current) drug therapy
CPT/HCPCS: 0241U; 36415; 71046; 80048; 80053; 80202; 83605; 83735; 83880; 84145; 85025; 86140; 87040; 87077; 94640; 96374; 97110-GP; 97161-GP; 99285-25; A9270-GY; J0456; J0696; J2920; J3370; J7030; J7050; J7620-GY

== ENCOUNTER 2024-07-26 13:41 | Emergency (ER) | payer MEDICARE, OTHER ==
[2024-07-26] MEDS ORDERED: Naloxone 2 MG/2 ML Syringe IVPUSH PRN (14:09)
[2024-07-26] MEDS: fentaNYL 50 MCG/ML SDV IVPUSH ONE ×2 (14:17→16:30)
[2024-07-26 16:02] VITALS: BP 136/81; PULSE 69
== END 2024-07-26 16:45 ==
LOC: CC.ED 13:41
DX: S72.142A Displaced intertrochanteric fracture of left femur, initial encounter for closed fracture (principal); I11.0 Hypertensive heart disease with heart failure; I50.9 Heart failure, unspecified; Z79.899 Other long term (current) drug therapy; Z91.041 Radiographic dye allergy status; W01.0XXA Fall on same level from slipping, tripping and stumbling without subsequent striking against object, initial encounter
CPT/HCPCS: 96374; 96376; 99284-25; J3010